=== PATIENT | male | born 1975 | race Caucasian/White ===

== ENCOUNTER 2017-11-10 20:51 | Emergency (ER) | payer SELFPAY ==
[2017-11-10 20:57] VITALS: BP 143/94; PULSE 84; RESP 18; TEMP 36.6; O2SAT 98; BMI 26.4
[2017-11-10] MEDS: SODIUM CHLORIDE 0.9% 1,000 ML 1000 ML IV (22:05)
[2017-11-10] MEDS: KETOROLAC 30 MG/ML VIAL IV (22:05)
[2017-11-10 22:09] LABS: Add Manual Diff / Slide Review NO; Basophils Percent Auto 0.3 % (0-2); Eosinophils Percent Auto 1.7 % (2-4); Hematocrit 43.2 % (41-53); Hemoglobin 15.2 g/dL (13.5-17.5); Lymphocytes Percent Auto 17.2 % (25-40); Mean Corpuscular HGB Conc 35.3 % (30-36); Mean Corpuscular Hemoglobin 29.6 PG (26-34); Mean Corpuscular Volume 83.8 fL (80-100); Monocytes Percent Auto 9.4 % (3-14); Neutrophils Absolute Auto 6300 /uL (3000-5900); Neutrophils Percent Auto 71.4 % (50-75); Platelet Count 201 X10^3/uL (150-400); Red Blood Cell Count 5.16 X10^6/uL (4.5-5.9); White Blood Cell Count 8.9 X10^3/uL (4.5-11.0)
[2017-11-10 22:21] LABS: BUN Creatinine Ratio 21.1 (6-22); Calcium 9.7 mg/dL (8.4-10.2); Estimated Glomerular Filt Rate > 60.0 mL/min (>60); Glucose 106 mg/dL (70-100); HEMOLYSIS < 15 (0-50); Sodium 141 mmol/L (137-145)
[2017-11-10 23:07] LABS: Calcium Oxalate Crystals Urine Few; RBC Urine 5-10/HPF (0-5/HPF); Squamous Epithelial Cell Urine 0-1 /HPF; WBC Urine 0-1/HPF (0-5/HPF)
[2017-11-10 23:08] LABS: Bacteria Urine Few (2-10); Culture Indicated Urine Cult Not Indicated; Mucus Urine 2+ (Negative)
[2017-11-10] MEDS: LIDOCAINE 2% 20 ML INJ 6.5 ML IV (23:54)
[2017-11-11 00:16] VITALS: BP 147/99; PULSE 74; RESP 15; O2SAT 96
[2017-11-11 00:17] VITALS: BP 147/99; PULSE 76; RESP 12; O2SAT 98
--- NOTE | 2017-11-11 00:27 | ED_ITS ---
HPI - Male Genitourinary General Chief complaint: Urogenital-Male Stated complaint: STOMACH PAIN Time Seen by Provider: 11/10/17 21:34 Source: patient Mode of arrival: ambulatory History of Present Illness HPI Narrative: Patient presents to the emergency department this evening with a chief complaint of sudden onset left flank pain with radiation into his groin. It is colicky in nature and without provocation or palliation Onset (ago): hour(s) Duration: intermittent Location: left inguinal region and left flank Radiation: left testicle Severity: moderate Quality: sharp Relieving factors: none Exacerbating factors: none Reports denies other symptoms Related Data Previous Rx's Medication Instructions Recorded hydrocodone-acetaminophen 1 tab PO Q4-6H PRN #14 tab 11/10/17 ketorolac 10 mg PO Q6H 2 Days #8 tab 11/10/17 ondansetron [Zofran ODT] 4 mg PO Q6H PRN #14 tab 11/10/17 tamsulosin [Flomax] 0.4 mg PO DAILY #10 cap 11/10/17 Allergies Allergy/AdvReac Type Severity Reaction Status Date / Time No Known Drug Allergies Allergy Verified 11/10/17 21:02 Review of Systems Review of Systems All systems reviewed & are unremarkable except as noted in HPI and below Constitutional Denies chills, Denies fever(s), Denies lethargy and Denies weakness Eyes Denies change in vision, Denies eye discharge, Denies irritation and Denies loss of vision ENT Ears, Nose, Mouth, and Throat: Denies change in voice, Denies neck pain and Denies sore throat Cardiovascular Denies chest pain, Denies irregular heart rhythm, Denies lightheadedness, Denies palpitations, Denies dyspnea, Denies dyspnea on exertion and Denies orthopnea Respiratory Denies cough, Denies dyspnea, Denies dyspnea on exertion and Denies wheezing Gastrointestinal Gastrointestinal: Denies abdominal pain, Denies change in bowel habits, Denies diarrhea, Denies nausea and Denies vomiting Genitourinary Denies hematuria, Reports flank pain, Denies urinary incontinence and Denies urinary urgency Musculoskeletal Denies neck pain Integumentary/Breasts Denies pruritus, Denies erythema, Denies rash and Denies wounds Neurologic Denies confusion, Denies loss of vision and Denies weakness Psychiatric Denies anxiety, Denies confusion, Denies depression, Denies homicidal ideation and Denies suicidal ideation Endocrine Denies palpitations Hematologic/Lymphatic Denies easy bruising Allergic/Immunologic Denies wheezing [facility] Social History Smoking Status: Never smoker Exam Initial Vital Signs Initial Vital Signs: Vital Signs Temperature 97.8 F 11/10/17 20:57 Pulse Rate 84 11/10/17 20:57 Respiratory Rate 18 11/10/17 20:57 Blood Pressure 143/94 H 11/10/17 20:57 Pulse Oximetry 98 11/10/17 20:57 Const General: cooperative and well developed Nutritional Appearance: well nourished Orientation: alert, awake, oriented x3 and not confused HENMT Head: normocephalic and atraumatic Ears: external ears normal and TM's normal bilaterally Nose: external nose normal and No nasal discharge Face and sinus: sinuses nontender, face symmetric, no sinus tenderness and No dry mucous membranes Mouth: oral mucosae normal and moist mucous membranes Teeth and gingiva: dentition normal Throat: tonsils normal and uvula midline Neck Neck: normal visual inspection, trachea midline, No lymphadenopathy, No midline deformity and No JVD Lymphatic: No lymphedema Chest Chest: normal inspection of the chest Resp Effort & Inspection: normal respiratory effort, able to speak in complete sentences, no respiratory distress and no use of accessory muscles Auscultation: clear to auscultation bilaterally, no rales, no rhonchi and no wheezes Cardio Rate: regular rate Rhythm: regular rhythm Heart Sounds: no click, no gallops, no murmurs and no rubs Pulses: normal peripheral pulses GI Inspection: non-distended Palpation: soft, no hepatosplenomegaly, No guarding, No pulsatile mass and No tender Auscultation: normal bowel sounds Neuro General: alert, oriented x3, gait normal and no focal motor deficits Speech: speech normal Psych Appearance: well kempt Mental Status: mental status grossly normal Attitude: cooperative Thought Content: normal and suicidality Judgment: judgment good Course Orders Ordered: ED Orders 11/10/17 22:00 Basic Metabolic Panel Stat Complete Blood Count AUTO DIFF Stat 11/10/17 22:38 Urine Microscopic Stat Discontinued Medications Hydrocodone Bitart/Acetaminophen (Vicodin Prepack) 1 bottle MISC SEEINSTR ONE Stop: 11/11/17 00:28 Last Admin: 11/11/17 00:39 Dose: 1 bottle Sodium Chloride (Normal Saline 0.9%) 1,000 mls @ 1,000 mls/hr IV BOLUS ONE Stop: 11/10/17 22:52 Last Infusion: 11/11/17 00:39 Dose: 0 mls/hr Admin: 11/10/17 22:05 Dose: 1,000 mls/hr Ketorolac Tromethamine (Toradol) 30 mg IV NOW ONE Stop: 11/10/17 21:54 Last Admin: 11/10/17 22:05 Dose: 30 mg Lidocaine HCl (Xylocaine 2%) 6.5 ml 0.075 ml/kg (6.5 ml) IV NOW ONE Stop: 11/10/17 23:08 Last Admin: 11/10/17 23:54 Dose: 6.5 ml Reevaluation(s) Reevaluation #1: Patient feels complete resolution of symptoms after fluids and Toradol followed by lidocaine drip Time: 00:27 Vital Signs - 8 hr 11/10/17 20:57 11/11/17 00:16 11/11/17 00:17 Temperature 97.8 F Pulse Rate 84 74 76 Respiratory Rate 18 15 12 Blood Pressure 143/94 H Blood Pressure [Left Arm] 147/99 H 147/99 H Pulse Oximetry 98 96 98 11/11/17 00:51 Temperature Pulse Rate 81 Respiratory Rate 17 Blood Pressure 152/98 H Blood Pressure [Left Arm] Pulse Oximetry 97 MDM - Male Genitourinary Lab Data Result diagrams: 11/10/17 22:00 11/10/17 22:00 Lab Results 11/10/17 11/10/17 11/10/17 Range/Units 22:00 22:00 22:38 WBC 8.9 (4.5-11.0) X10^3/uL RBC 5.16 (4.5-5.9) X10^6/uL Hgb 15.2 (13.5-17.5) g/dL Hct 43.2 (41-53) % MCV 83.8 (80-100) fL MCH 29.6 (26-34) PG MCHC 35.3 (30-36) % RDW 13.0 (11.6-14.8) % Plt Count 201 (150-400) X10^3/uL Neut % (Auto) 71.4 (50-75) % Lymph % (Auto) 17.2 L (25-40) % Rankin % (Auto) 9.4 (3-14) % Eos % (Auto) 1.7 L (2-4) % Baso % (Auto) 0.3 (0-2) % Neut # (Auto) 6300 H (0766-0934) /uL Sodium 141 (137-145) mmol/L Potassium 4.0 (3.4-5.1) mmol/L Chloride 103.0 (98-107) mmol/L Carbon Dioxide 28.0 (22-32) mmol/L BUN 19.0 (9-20) mg/dL Creatinine 0.90 (0.66-1.25) mg/dL Estimated GFR > 60.0 (>60) mL/min BUN/Creatinine Ratio 21.1 (6-22) Glucose 106 H (70-100) mg/dL Calcium 9.7 (8.4-10.2) mg/dL Urine RBC 5-10/hpf H (0-5/HPF) Urine WBC 0-1/hpf (0-5/HPF) Ur Squamous Epith Cells 0-1 /hpf Calcium Oxalate Crystal Few H (None) Urine Bacteria Few (2-10) H (None) Urine Mucus 2+ H (Negative) Ur Culture Indicated? Cult not indicated Micro UA Comment Not Reportable Discharge Plan Departure Patient Disposition: Home, Self-Care Clinical Impression: Kidney stone Discharge Date/Time: 11/11/17 00:52 Interventions: ED Discharge Assessment Last Done: 11/11/17 00:51 Instructions: DI for Kidney Stones Activity Restrictions/Additional Instructions: There is no evidence of an emergent or life threatening illness at this time, but follow up with your doctor in 1-2 days is recommended nonetheless to continue to rule out serious underlying causes of your symptoms. Please call the office for an appointment. Please return to the Emergency Department for any worsening or persistent symptoms. Please take medications as directed. You have been prescribed narcotic medications. While on these medications you cannot drive or operate heavy machinery. Additionally you cannot sign legal documents or perform any duties such as this. Many people get constipated on narcotic medications so it would be advisable to discuss stool softeners with the pharmacist when you supervisor modern languages your prescription. Please understand that we cannot provide further refills of narcotics or controlled substances through the ED and your pain management will need to be through your Primary Care Provider Prescriptions: New hydrocodone-acetaminophen 5-325 mg tablet 1 tab PO Q4-6H PRN (Reason: pain) Qty: 14 RF: 0 ondansetron [Zofran ODT] 4 mg tablet,disintegrating 4 mg PO Q6H PRN (Reason: nausea and vomiting) Qty: 14 RF: 0 tamsulosin [Flomax] 0.4 mg capsule,extended release 24hr 0.4 mg PO DAILY Qty: 10 RF: 0 ketorolac 10 mg tablet 10 mg PO Q6H 2 Days Qty: 8 RF: 0 Referrals: El Lewis MD [Non-Staff] -
[2017-11-11] MEDS: HYDROCODONE/ACET 5/325 PREPACK 1 BOTTLE MISC (00:39)
[2017-11-11 00:51] VITALS: BP 152/98; PULSE 81; RESP 17; O2SAT 97
== END 2017-11-11 00:52 | disposition home or self-care (01) ==
PROVIDERS: Emergency Provider Emergency Medicine
DX: N20.0 Calculus of kidney (principal)
CPT/HCPCS: 36591; 80048; 81003; 81015; 85025; 96361; 96374; 99283; 99284; J1885